=== PATIENT | male | born 1995 | race American Indian/Alaskan Native ===

== ENCOUNTER 2020-06-17 02:18 | Emergency (ER) | payer SELFPAY ==
[~2020-06-17] VITALS: Ht 175.3 cm; Wt 0.8 kg
[2020-06-17 02:28] VITALS: BP 132/76
== END 2020-06-17 02:35 ==
LOC: ER 02:18
DX: R04.0 Epistaxis (principal); F10.129 Alcohol abuse with intoxication, unspecified; V87.7XXA Person injured in collision between other specified motor vehicles (traffic), initial encounter; Y93.89 Activity, other specified; Y92.488 Other paved roadways as the place of occurrence of the external cause; Y99.8 Other external cause status; Y90.0 Blood alcohol level of less than 20 mg/100 ml
CPT/HCPCS: 99283

== ENCOUNTER 2022-12-03 12:15 | Emergency (ER) | payer BC ==
[~2022-12-03] VITALS: Ht 182.9 cm; Wt 96.2 kg
[2022-12-03 12:16] VITALS: BP 132/96; PULSE 86; RESP 16; TEMP 98; O2SAT 99
== END 2022-12-03 15:12 | disposition home or self-care (01) ==
LOC: ER 12:16
DX: S61.412A Laceration without foreign body of left hand, initial encounter (principal); F17.200 Nicotine dependence, unspecified, uncomplicated; Z88.2 Allergy status to sulfonamides; X58.XXXA Exposure to other specified factors, initial encounter; Y93.89 Activity, other specified; Y92.89 Other specified places as the place of occurrence of the external cause; Y99.8 Other external cause status
CPT/HCPCS: 12002; 99282; A6449